=== PATIENT | male | born 1975 | race Caucasian/White ===

== ENCOUNTER 2017-02-17 12:17 | Outpatient (CLI) | payer OTHER | END 2017-02-17 19:56 | disposition home or self-care (01) | LOC: SUS 12:17 | PROVIDERS: ATTEND Family Medicine | DX: K52.9 Noninfective gastroenteritis and colitis, unspecified (principal) | CPT/HCPCS: 76700-TC ==

== ENCOUNTER 2017-02-19 12:41 | Inpatient (IN) | payer OTHER ==
[~2017-02-19] VITALS: Ht 175.3 cm; Wt 97.5 kg
[2017-02-19 12:49] VITALS: BP_SYST 159
--- NOTE | 2017-02-19 12:53 | NUR ---
Pt placed to ER waiting room in stable condition.
--- NOTE | 2017-02-19 15:00 | NUR ---
Patient to ER Bed H1 to gown for evaluation. Side rails up. Report given to Eugene NATHAN.
--- NOTE | 2017-02-19 15:30 | NUR ---
Pt ambulated into ED c/o N/V/D since 02/08/17. Pt reports having no appetite, feeling dehydrated, and being unable to keep any food down. Pt states his PMD has prescribed Zofran and other medications which did not relieve pt's symptoms. Afebrile, no cough present, pt speaking in full sentences, breathing even and unlabored. No other injuries/complaints per pt/noted.
--- NOTE | 2017-02-19 15:39 | NUR ---
ER Dr. Oliveira at bedside examining patient.
[2017-02-19] MEDS ORDERED: NACL 0.9% 1,000 ML IV ONE ×2 (15:49→17:30)
[2017-02-19] MEDS ORDERED: ONDANSETRON HCL 4 MG/2 ML VIAL IVP ONE ×2 (16:00→20:15)
--- NOTE | 2017-02-19 16:15 | NUR ---
# 20 gauge angiocath placed to L AC. Use of asceptic technique. Opsite placed over site. Blood return noted. Flushed with 10 cc of normal saline. No evidence of infiltration noted. Patient tolerated well.
[2017-02-19 16:18] LABS: BASOPHILS # (AUTO) 0.1 K/uL (0.0-0.2); BASOPHILS % (AUTO) 0.8 % (0.0-2.0); EOSINOPHILS # (AUTO) 0.1 K/uL (0.0-0.4); EOSINOPHILS % (AUTO) 0.8 % (0.0-4.0); HEMATOCRIT 45.8 % (36-54); HEMOGLOBIN 15.5 g/dL (14.0-18.0); LYMPHOCYTES # (AUTO) 1.6 K/uL (1.0-5.5); LYMPHOCYTES % (AUTO) 18.8 % (20.5-51.5); MEAN CORPUSCULAR HEMOGLOBIN 31 pg (27-31); MEAN CORPUSCULAR HGB CONC 34 % (32-36); MEAN CORPUSCULAR VOLUME 90 fL (79.0-98.0); MONOCYTES # (AUTO) 0.4 K/uL (0.0-1.0); MONOCYTES % (AUTO) 5.2 % (1.7-9.3); NEUTROPHILS # (AUTO) 6.2 K/uL (1.8-7.7); NEUTROPHILS % (AUTO) 74.4 % (40.0-70.0); PLATELET COUNT (AUTO) 237 K/uL (130-430); RED BLOOD CELL COUNT(AUTO) 5.07 MIL/uL (4.2-6.2); RED CELL DISTRIBUTION WIDTH 11.8 % (9.0-15.0); WHITE BLOOD COUNT (AUTO) 8.4 K/uL (4.8-10.8)
--- NOTE | 2017-02-19 16:31 | NUR ---
Medication administered. Pt tolerated well. No adverse reactions noted.
[2017-02-19 16:32] LABS: ANION GAP 12 (5-15); CALCIUM 9.5 mg/dL (8.4-11.0); CHLORIDE 103 mmol/L (98-107); CREATININE 0.97 mg/dL (0.55-1.30); GLUCOSE 98 mg/dL (70-99); POTASSIUM 3.5 mmol/L (3.5-5.1); SODIUM SERUM 142 mmol/L (136-145); UREA NITROGEN, BLOOD 10 mg/dL (8-21)
[2017-02-19 16:34] LABS: GFR AFRICAN AMERICAN 110 mL/min (>90)
[2017-02-19 16:40] LABS: BILIRUBIN,URINE 1+ (NEGATIVE); BLOOD, URINE NEGATIVE (NEGATIVE); CLARITY/URINE HAZY (CLEAR); COLOR,URINE AMBER (YELLOW); GLUCOSE,URINE NEGATIVE (NEGATIVE); KETONES,URINE 2+ (NEGATIVE); LEUKOCYTE ESTERASE ,URINE NEGATIVE (NEGATIVE); NITRITE, URINE NEGATIVE (NEGATIVE); PROTEIN URINE TRACE (NEGATIVE); UROBILINOGEN,URINE 0.2 (0.2-1.0)
[2017-02-19 16:41] LABS: ALANINE AMINOTRANSFERASE 116 U/L (12-78); ALBUMIN 4.3 g/dL (3.4-4.8); ASPARTATE AMINOTRANSFERASE 83 U/L (10-37); LIPASE 195 U/L (73-393); TOTAL BILIRUBIN 0.9 mg/dL (0.0-1.0)
[2017-02-19 16:47] LABS: INR 1.1 (0.80-1.20)
--- NOTE | 2017-02-19 16:54 | NUR ---
ER Dr. Maradiaga at bedside updating patient.
--- NOTE | 2017-02-19 17:10 | NUR ---
Pt ambulated to restroom with cane to provide stool sample.
[2017-02-19 17:35] LABS: BACTERIA,URINE FEW /HPF (None Seen); MUCUS,URINE 1+ /LPF (None Seen); RBC,URINE NONE SEEN /HPF (0-3); URINE AMORPHOUS URATE 4+ /HPF (None Seen); WBC,URINE 0-3 /HPF (0-3)
[2017-02-19] MEDS ORDERED: PANTOPRAZOLE SODIUM 40 MG/VIAL (PROTONIX) IVP ONE (18:15)
--- NOTE | 2017-02-19 18:28 | NUR ---
Pt taken to radiology via wheelchair in stable condition.
--- NOTE | 2017-02-19 18:38 | NUR ---
Pt returned from radiology via wheelchair in stable condition.
--- NOTE | 2017-02-19 18:52 | NUR ---
Pt reports feeling 8/10 aching dull non-radiating substernal pain. Dr. Maradiaga notified.
[2017-02-19] MEDS ORDERED: MORPHINE 4 MG/ML INJ. SYRINGE IVP ONE (19:15)
[2017-02-19] MEDS ORDERED: KETOROLAC TROMETHAMINE 30 MG VIAL IVP ONE (19:15)
[2017-02-19] MEDS ORDERED: PIPERACILLIN/TAZO 3.375 GM in NS 50 ML IV ONE (19:30)
[2017-02-19] MEDS ORDERED: MORPHINE SULFATE 10 MG/ML VIAL ONE (19:39)
--- NOTE | 2017-02-19 20:03 | NUR ---
Pt reports he is full code.
--- NOTE | 2017-02-19 20:40 | NUR ---
Zosyn administered. Pt tolerated well. No adverse reactions noted. at bedside.
[2017-02-19] MEDS ORDERED: DULO60CA41 PO (20:42)
[2017-02-19] MEDS ORDERED: SOM350 PO (20:42)
[2017-02-19] MEDS ORDERED: HYDR-4100 PO (20:42)
--- NOTE | 2017-02-19 20:49 | NUR ---
Medication reconciliation completed with information provided by Pt. Any prior medication reconciliation on file was reviewed and corrected.
--- NOTE | 2017-02-19 21:58 | NUR ---
Patient will be admitted to [facility]. Admitted to MEDSURG unit. Will go to room 123B. Belongings list completed. Summary report printed. Report will be given at bedside.
[2017-02-19] MEDS: NACL 0.9% 1,000 ML IV SCH (22:00)
--- NOTE | 2017-02-19 22:01 | NUR ---
ADMISSION NOTE Received patient from ER via erikarkristal, received report from MOBILE APPLICATION DEVELOPER. Patient admitted with diagnosis of ABDOMINAL PAIN RULE OUT ACTUE CHOLECYSTITIS. Patient oriented to hospital routine, call light, toileting and safety-patient verbalized understanding.
[2017-02-19 22:05] VITALS: BP_SYST 161
--- NOTE | 2017-02-19 22:30 | NUR ---
REPORT RECEIVED FROM ADMITTING NURSE Patient in bed resting. He says he is somewhat nauseous and he requested "nausea medication" and something for anxiety. The nurse will page Dr. Goodman. Patient is on IVF NS 0.9% at 75cc/hour right AC #20. He walks to the bathroom and he is instructed to call for assistance.
--- NOTE | 2017-02-19 23:00 | NUR ---
Dr. Goodman paged, waiting for response
--- NOTE | 2017-02-19 23:30 | NUR ---
DR. GOODMAN CALLED BACK Dr. Goodman called back and he ordered Zofran 4 mg q4h PRN and Ativan 0.5 mg q4h PRN. The nurse noticed that there are no Allergies noted in the system, but the patient is sleeping, so she will wait for him to wake up for the information.
[2017-02-20] VITALS: BP_SYST 146
--- NOTE | 2017-02-20 00:39 | NUR ---
CONSULT REASON CP FOR DOCTOR PIPPA, SULLY RODRIGEZ IS POWER PROJECT MANAGER SPOKE WITH EXCHANGE
[2017-02-20] MEDS ORDERED: LORazepam 2 MG/ML VIAL IVP PRN (01:00)
[2017-02-20] MEDS ORDERED: ONDANSETRON HCL 4 MG/2 ML VIAL IVP PRN (01:00)
--- NOTE | 2017-02-20 02:00 | NUR ---
ROUNDS Patient in bed sleeping. No pain or distress noted.
--- NOTE | 2017-02-20 04:30 | NUR ---
ROUNDS Patient in bed sleeping. No S/S of pain or distress noted. Fall precautions in place.
--- NOTE | 2017-02-20 05:30 | NUR ---
PATIENT REQUESTED ZOFRAN/ATIVAN Patient requested Zofran and Ativan. The nurse informed him that since he will have HIDA scan in the morning, he is not allowed to have pain or anxiety medications after 5 am. He was OK with the Zofran only. The nurse administered the medication.
--- NOTE | 2017-02-20 06:45 | NUR ---
CLOSING NOTE The nurse received a call from Radiology stating that they have 3 patients before Mr. Jaramillo to scan. The Radiology nurse recommended to ask the for order for breakfast for the patient. Dr. Goodman came to the unit at that time and the nurse spoke with him about that. Dr. Goodman put an order for Regular diet. The nurse called the kitchen and left a message with details about the patient needing breakfast brought to the room. Patient is in bed resting. No pain or distress noted. IVF are running smoothly. patient is on room air.
[2017-02-20 06:50] LABS: BASOPHILS % (AUTO) 0.3 % (0.0-2.0); EOSINOPHILS # (AUTO) 0.2 K/uL (0.0-0.4); EOSINOPHILS % (AUTO) 2.4 % (0.0-4.0); HEMATOCRIT 38.8 % (36-54); HEMOGLOBIN 13.6 g/dL (14.0-18.0); LYMPHOCYTES # (AUTO) 1.6 K/uL (1.0-5.5); LYMPHOCYTES % (AUTO) 17.9 % (20.5-51.5); MEAN CORPUSCULAR HEMOGLOBIN 32 pg (27-31); MEAN CORPUSCULAR HGB CONC 35 % (32-36); MEAN CORPUSCULAR VOLUME 91 fL (79.0-98.0); MONOCYTES # (AUTO) 0.8 K/uL (0.0-1.0); MONOCYTES % (AUTO) 8.5 % (1.7-9.3); NEUTROPHILS # (AUTO) 6.2 K/uL (1.8-7.7); NEUTROPHILS % (AUTO) 70.9 % (40.0-70.0); PLATELET COUNT (AUTO) 177 K/uL (130-430); RED BLOOD CELL COUNT(AUTO) 4.26 MIL/uL (4.2-6.2); RED CELL DISTRIBUTION WIDTH 12.1 % (9.0-15.0); WHITE BLOOD COUNT (AUTO) 8.8 K/uL (4.8-10.8)
[2017-02-20 07:07] LABS: CALCIUM 8.8 mg/dL (8.4-11.0); CREATININE 1.05 mg/dL (0.55-1.30); POTASSIUM 3.5 mmol/L (3.5-5.1)
[2017-02-20 08:00] VITALS: BP_SYST 125
--- NOTE | 2017-02-20 08:00 | NUR ---
OPENING NOTE PT A/O X 4, RESTING IN BED, BREATHING IS EVEN AND UNLABORED W/ NO SIGNS OF DISTRESS NOTED AT THIS TIME. IV SITE IS CLEAN, DRY AND INTACT W/ NO SIGNS OF REDNESS OR SWELLING, BUT IV PUMP IS BEEPING D/T HIGH PRESSURE. ADJUSTED IV AND RETAPED AND CONFIRMED IVF INFUSING WELL. PT STATES HIS ABDOMINAL PAIN IS AT 3/10, WHICH IS A COMFORTABLE LEVEL FOR HIM AND NO MEDICATIONS DESIRED. PAIN IS LOCATED IN UPPER MID ABDOMINAL AREA. NO SIGNS OF DISTRESS NOTED AT THIS TIME, NO C/O OF N/V. BED IS LOCKED IN LOWEST POSTION W/ 2 SIDE RAILS UP AND CALL LIGHT W/ PT. WILL CONTINUE TO MONITOR PT.
[2017-02-20] MEDS ORDERED: BISACODYL 10 MG/SUPPOSITORY RC PRN (09:30)
[2017-02-20] MEDS ORDERED: HYDROcodone/ACETAMIN 10-325 MG TAB PO PRN (09:30)
[2017-02-20] MEDS ORDERED: ZOLPIDEM TARTRATE 5 MG TABLET PO PRN (09:30)
[2017-02-20] MEDS ORDERED: POTASSIUM CHLORIDE 20 MEQ TAB.PRT.SR PO PRN (09:30)
[2017-02-20] MEDS ORDERED: SIMETHICONE 80 MG TAB.CHEW PO PRN (09:30)
--- NOTE | 2017-02-20 10:05 | NUR ---
ROUNDS PT RESTING IN BED W/ NO SIGNS OF DISTRESS NOTED AT THIS TIME. SAFETY MEASURES IN PLACE AND WILL CONTINUE TO MONITOR PT.
--- NOTE | 2017-02-20 10:22 | NUR ---
GI consult called: for Dr. Robertson (Dr. Vazquez is ribbon tier), regarding gastritis, ordered by Dr. Jimenez, spoke with An at [facility].
[2017-02-20] MEDS ORDERED: PANTOPRAZOLE GRANULES PACKET 40 MG GT ONE (10:30)
--- NOTE | 2017-02-20 10:45 | NUR ---
DR. FRANK DOING ROUNDS, AT PTS BEDSIDE.
[2017-02-20] MEDS: LORazepam 2 MG/ML VIAL IVP PRN (11:31)
[2017-02-20] MEDS: NACL 0.9% 1,000 ML IV SCH (11:40)
[2017-02-20] MEDS: ONDANSETRON HCL 4 MG/2 ML VIAL IM PRN ×3 (11:49→23:46)
[2017-02-20 12:00] VITALS: BP_SYST 140
--- NOTE | 2017-02-20 12:39 | NUR ---
pt off floor to radiology for HIDA Scan
--- NOTE | 2017-02-20 13:00 | NUR ---
PT RETURNED FROM RADIOLOGY. HIDA SCAN DELAYED UNTIL APPROXIMATELY 1530 D/T PT HAVING NORCO. PT RESTING IN BED W/ NO SIGNS OF DISTRESS NOTED AT THIS TIME. SAFETY MEASURES IN PLACE AND CALL LIGHT W/ PT.
--- NOTE | 2017-02-20 15:10 | NUR ---
ROUNDS PT RESTING IN BED W/ AT BEDSIDE. NO CONCERNS NOTED AT THIS TIME, SAFETY MEASURES IN PLACE AND CALL LIGHT W/ PT.
--- NOTE | 2017-02-20 15:35 | NUR ---
PT OFF FLOOR TO RADIOLOGY FOR HIDA SCAN
--- NOTE | 2017-02-20 18:05 | NUR ---
PT RETURNED TO FLOOR FROM RADIOLOGY
--- NOTE | 2017-02-20 19:30 | NUR ---
CLOSING NOTES PT RESTING IN BED W/ NO SIGNS OF DISTRESS NOTED AT THIS TIME, W/ AT BEDSIDE. PT C/O NAUSEA AND PRN ZOFRAN ADMINISTERED. PT ADVISED THAT TECH INFORMED HIM THAT GALLBLADDER NOT VISUALIZED AND THERE IS A POTENTIAL FOR SURGERY THIS EVENING. ADVISED PT THAT WE WILL FOLLOW UP ON NEXT STEPS AND WILL KEEP HIM UPDATED. SAFETY MEASURES IN PLACE, CALL LIGHT W/ PT AND WILL ENDORSE TO NOC SHIFT RN.
[2017-02-20 20:00] VITALS: BP_SYST 138
--- NOTE | 2017-02-20 20:00 | NUR ---
INITIAL NOTES PATIENT ON BED AWAKE AND ALERT BREATHING EVEN AND UNLABORED, MAINTAINED SAFETY PRECAUTIONS, MAINTAINED POSITION OF COMFORT. NO PAIN NOTED. EXPLAINED THE PLAN OF CARE AND VERBALIZED UNDERSTANDING, CALL LIGHT WITHIN REACH WILL CONTINUE TO MONITOR.
--- NOTE | 2017-02-20 20:30 | NUR ---
CALLED MD CALLED DR. MCKINNEY AND CLARIFIED THAT THE PATIENT IS PROBABLY NOT GOING TO HAVE A SURGERY TONIGHT AND WILL WAIT FOR THE HIDA SCAN RESULTS. PATIENT EAT ON A REGULAR DIET TONIGHT AND WILL BE ON NPO AFTER EATING AND MEDICINES TO PREPARE FOR THE POSSIBLE SURGERY TOMORROW.
[2017-02-20] MEDS: CARISOPRODOL 350 MG TABLET PO SCH (21:27)
[2017-02-20] MEDS: DULoxetine HCL 30 MG CAPSULE.DR (CYMBALTA) PO SCH (21:28)
--- NOTE | 2017-02-20 22:00 | NUR ---
RN ROUNDS PATIENT UP AND ABOUT WALKING ON THE HALLWAY AND TOLERATED WELL. MAINTAINED SAFETY PRECAUTIONS. BREATHING EVEN AND UNLABORED, ENCOURAGED TO DO RELAZATION AND DEEP BREATHING EXERCISES. CALL LIGHT WITHIN REACH WILL CONTINUE TO MONITOR.
--- NOTE | 2017-02-20 23:48 | NUR ---
RN ROUNDS PATIENT ON BED FEELING NAUSEOUS AND HAD SOME VOMITING THICK AMOUNT ABOUT 10CC, YELLOWISH AND HAVE SOME VEGETABLE IN IT. ZOFRAN GIVEN. NO PAIN NOTED. PATIENT ALSO HAS VERBALIZED SOME WATERY DIARRHEA THAT IS IRRITATING HIS BOTTOM AND ANUS. WILL GIVE REPORT TO NURSE TO TAKE OVER. CALL LIGHT WITHIN REACH WILL CONTINUE TO MONITOR.
--- NOTE | 2017-02-20 23:52 | NUR ---
ASSUMPTION OF CARE RECEIVED HANDOFF REPORT FROM HERBER-VENITA AT THE BEDSIDE. PATIENT IS AWAKE AND ALERT, SITTING UP AT THE EDGE OF THE BED WITH EPISODES OF VOMITING. ZOFRAN GIVEN BY HERBER CHAVEZ PER MD ORDER, SEE EMAR FOR DETAILS. NO SOB NOTED, BREATHING IS EVEN AND UNLABORED. BED IS LOCKED, IN THE LOWEST POSITION, WITH BILATERAL SIDE RAILS UP FOR SAFETY. PATIENT ALSO REPORTED THAT HE HAD AN EPISODE OF DIARRHEA. PATIENT IS ABLE TO AMBULATE SELF TO THE RESTROOM AND BACK, AND THEN HAD ANOTHER EPISODE OF DIARRHEA. WILL REPORT TO DOCTOR MCKINNEY. CALL LIGHT IS WITHIN REACH. WILL CONTINUE WITH PLAN OF CARE.
--- NOTE | 2017-02-20 23:57 | NUR ---
CALLED DR MCKINNEY AND INFORMED HIM THAT THE PATIENT ATE A SANDWICH FOR DINNER THAT WAS PROVIDED BY THE [employer] ATTENDANT PREVIOUSLY. ALSO INFORMED HIM THAT THE PATIENT IS NOW HAVING EPISODES OF DIARRHEA AND VOMITING. DR MCKINNEY STATED THAT THE PATIENT IS EXPERIENCING THESE SYMPTOMS DUE TO HIS DISEASE PROCESS. DR MCKINNEY ALSO STATED TO CONTINUE MONITORING THE EPISODES OF DIARRHEA AND VOMITING, TO KEEP THE PATIENT ON NPO, AND TO WAIT FOR THE RESULTS OF THE HIDA SCAN. DR MCKINNEY ALSO INFORMED THAT HE IS STILL PENDING A SURGEON FOR TOMORROW MORNING IF NEEDED. ORDERS NOTED AND CARRIED OUT, WILL CONTINUE TO MONITOR THE PATIENT CLOSELY.
--- NOTE | 2017-02-21 00:02 | NUR ---
CALLED [facility] [phone] PATIENT'S SPOUSE PER PATIENT REQUEST. INFORMED THE SPOUSE OF UPDATES ON THE PATIENT SINCE SHE LEFT AT 10AM. ALSO INFORMED HER THAT WE ARE STILL AWAITING FOR THE RESULTS OF THE HIDA SCAN, IS AWARE. SPOUSE HAS NO FURTHER QUESTIONS AT THIS TIME AND STATED THAT SHE WILL COME IN TOMORROW MORNING TO CHECK UP ON THE PATIENT.
[2017-02-21 00:28] VITALS: BP_SYST 149
--- NOTE | 2017-02-21 00:34 | NUR ---
PATIENT COMPLAINING THAT HE DID NOT LIKE HIS IV SITE DUE TO ITS LOCATION IN THE LEFT AC. STATED THAT IT ALWAYS CAUSES THE IV MACHINE TO BEEP. PATIENT REQUESTED FOR A NEW IV SITE TO BE DONE. ATTEMPTED TO START AN IV WITH NO SUCCESS. INFORMED THE PATIENT THAT HIS CURRENT IV SITE IS STILL A GOOD SITE. PATIENT STATED THAT HE WILL CONTINUE USING HIS CURRENT IV SITE.
--- NOTE | 2017-02-21 01:00 | NUR ---
PATIENT COMPLAINING ABOUT IV SITE AND WANTS A NEW IV SITE. IV STARTED IN THE LEFT HAND #18G, GOOD BLOOD RETURN, FLUSHES WELL. IV FLUIDS IS NOT INFUSING AT THE PRESCRIBED RATE THROUGH THE LEFT HAND IV. PATIENT TOLERATED PROCEDURE WELL.
--- NOTE | 2017-02-21 02:13 | NUR ---
PATIENT IS ASLEEP, RESTING COMFORTABLY IN BED. BREATHING IS EVEN AND UNLABORED WITH VISIBLE RISE AND FALL OF THE CHEST SEEN. NO SOB NOTED, NO S/S OF ACUTE DISTRESS, NO SIGNS OF PAIN OR FACIAL GRIMACING. CALL LIGHT WITHIN REACH.
[2017-02-21] MEDS: NACL 0.9% 1,000 ML IV SCH ×3 (05:35→21:42)
[2017-02-21] MEDS: ONDANSETRON HCL 4 MG/2 ML VIAL IM PRN ×3 (05:40→13:52)
--- NOTE | 2017-02-21 05:55 | NUR ---
ZOFRAN PATIENT IS COMPLAINING OF FEELING NAUSEOUS. PROVIDED ZOFRAN PRN PER MD ORDER, SEE EMAR FOR DETAILS.
--- NOTE | 2017-02-21 06:42 | NUR ---
CLOSING NOTES PATIENT IS ASLEEP, RESTING COMFORTABLY IN BED. NO SOB NOTED, NO S/S OF ACUTE DISTRESS, NO SIGNS OF PAIN OR FACIAL GRIMACING. BREATHING IS EVEN AND UNLABORED. IV SITE INTACT, DRESSING CLEAN AND DRY, CURRENTLY INFUSING FLUIDS AT THE PRESCRIBED RATE, SEE EMAR FOR DETAILS. BED IS LOCKED, IN THE LOWEST POSITION, WITH BILATERAL UPPER SIDE RAILS UP FOR SAFETY. FALL AND SAFETY PRECAUTIONS MAINTAINED. ALL NEEDS HAVE BEEN MET DURING THIS SHIFT. WILL ENDORSE CARE TO ONCOMING DAYSHIFT NURSE.
[2017-02-21 07:11] LABS: BASOPHILS % (AUTO) 0.2 % (0.0-2.0); EOSINOPHILS # (AUTO) 0.1 K/uL (0.0-0.4); EOSINOPHILS % (AUTO) 1.9 % (0.0-4.0); HEMATOCRIT 37.1 % (36-54); HEMOGLOBIN 13.1 g/dL (14.0-18.0); LYMPHOCYTES # (AUTO) 1.9 K/uL (1.0-5.5); LYMPHOCYTES % (AUTO) 25.2 % (20.5-51.5); MEAN CORPUSCULAR HEMOGLOBIN 32 pg (27-31); MEAN CORPUSCULAR HGB CONC 35 % (32-36); MEAN CORPUSCULAR VOLUME 91 fL (79.0-98.0); MONOCYTES # (AUTO) 0.6 K/uL (0.0-1.0); MONOCYTES % (AUTO) 8.1 % (1.7-9.3); NEUTROPHILS % (AUTO) 64.6 % (40.0-70.0); PLATELET COUNT (AUTO) 168 K/uL (130-430); RED BLOOD CELL COUNT(AUTO) 4.06 MIL/uL (4.2-6.2); RED CELL DISTRIBUTION WIDTH 12.1 % (9.0-15.0); WHITE BLOOD COUNT (AUTO) 7.6 K/uL (4.8-10.8)
[2017-02-21 07:30] LABS: ALBUMIN 3.8 g/dL (3.4-4.8); CREATININE 0.91 mg/dL (0.55-1.30); PHOSPHORUS 3.1 mg/dL (2.7-4.5); POTASSIUM 3.8 mmol/L (3.5-5.1); TOTAL BILIRUBIN 0.7 mg/dL (0.0-1.0)
[2017-02-21] MEDS: PANTOPRAZOLE SODIUM 40 MG TAB PO SCH (07:47)
[2017-02-21 08:00] VITALS: BP_SYST 133
--- NOTE | 2017-02-21 08:00 | NUR ---
OPENING NOTE PT A/OX4, RESTING IN BED, BREATHING IS EVEN AND UNLABORED ON ROOM AIR, W/ NO SIGNS OF DISTRESS NOTED AT THIS TIME. IV SITES ARE CLEAN, DRY AND INTACT W/ NO REDNESS OR SWELLING AND IVF INFUSING WELL TO L HAND IV SITE. PT IS NPO FOR POSSIBLE SURGERY TODAY AND PT IS ANXIOUS FOR UPDATE. ADVISED PT THAT WE WILL F/U W/ DOCTOR SOON HIDA SCAN RESULTS ARE AVAILABLE. BED IS LOCKED IN LOWEST POSITION, 2 SIDE RAILS UP, CALL LIGHT W/ PT AND PT INSTRUCTED TO CALL IF ASSISTANCE NEEDED. PT VERBALIZED UNDERSTANDING OF INSTRUCTIONS PROVIDED.
--- NOTE | 2017-02-21 09:11 | NUR ---
SURVEY ENGINEER DR MONTERO WAS CALLED , RE: PRECIOUS RESULTS. LEFT A VM ON HIS CELL
[2017-02-21] MEDS: LORazepam 2 MG/ML VIAL IVP PRN (09:40)
--- NOTE | 2017-02-21 09:40 | NUR ---
ROUNDS / ANXIETY MED PASS PT RESTING IN BED C/O ANXIETY. ADMINISTERED PRN ATIVAN, PROVIDED PT EDUCATION REGARDING MEDICATION USE AND POSSIBLE SIDE EFFECTS. NO OTHER CONCERNS NOTED AT THIS TIME, SAFETY MEASURES IN PLACE AND WILL CONTINUE TO MONITOR PT.
--- NOTE | 2017-02-21 10:53 | NUR ---
GI CONSULT CALLED TO DR CAVAZOS, RE: POSS CBD STONE NO BG IPTAKE ON HIDA. SPOKE TO OBED
--- NOTE | 2017-02-21 11:09 | NUR ---
GENERAL SURGERY CONSULT CALLED TO DR BOYLE, RE: POSS GALSTONE, NO GB UPTAK ON HIDA. SPOKE TO MAGGIE
--- NOTE | 2017-02-21 11:55 | NUR ---
ROUNDS PT RESTING IN BED W/ NO SIGNS OF DISTRESS NOTED. SAFETY MEASURES IN PLACE AND CALL LIGHT W/ PT.
[2017-02-21 12:00] VITALS: BP_SYST 140
--- NOTE | 2017-02-21 13:52 | NUR ---
ROUNDS / NAUSEA MED PASS PT RESTING IN BED C/O NAUSEA. ADMINISTERED PRN ZOFRAN AND PROVIDED PT EDUCATION REGARDING MEDICATION USE AND POSSIBLE SIDE EFFECTS. PT VERBALIZED UNDERSTANDING AND NO OTHER CONCERNS NOTED AT THIS TIME. SAFETY MEASURES IN PLACE, CALL LIGHT W/ PT AND WILL CONTINUE TO MONITOR PT.
--- NOTE | 2017-02-21 15:04 | NUR ---
Dietitian Recommendations *Continue NPO status per MD. *Recommend advance diet when medically appropriate (soft diet).
[2017-02-21 16:00] VITALS: BP_SYST 142
--- NOTE | 2017-02-21 16:10 | NUR ---
ROUNDS PT RESTING IN BED W/ EYES CLOSED, APPEARS TO BE SLEEPING. NO SIGNS OF DISTRESS NOTED, SAFETY MEASURES IN PLACE, WILL CONTINUE TO MONITOR PT.
--- NOTE | 2017-02-21 17:00 | NUR ---
ROUNDS / CHG BATH ASSISTED PT W/ CHG BATH IN PREPARATION FOR SURGERY AND CHANGED BED LINENS. PT'S AT BEDSIDE, SAFETY MEASURES IN PLACE AND CALL LIGHT W/ PT. WILL CONTINUE TO MONITOR PT.
--- NOTE | 2017-02-21 17:58 | NUR ---
Pt off floor to OR for surgery
--- NOTE | 2017-02-21 19:00 | NUR ---
CLOSING NOTE PT STILL IN OR FOR SURGERY. WILL ENDORSE TO NOC SHIFT RN.
[2017-02-21] MEDS ORDERED: HYDROmorphone 1 MG INJ. 1 MG/ML AMPUL IVP PRN (19:15)
[2017-02-21] MEDS ORDERED: MEPERIDINE HCL/PF 25 MG/ML DISP.SYRIN IVP PRN (19:15)
[2017-02-21] MEDS ORDERED: ONDANSETRON HCL 4 MG/2 ML VIAL IVP ONE (19:15)
[2017-02-21] MEDS ORDERED: NALOXONE HCL 0.4 MG/ML AMP (NARCAN) IVP ONE (19:15)
[2017-02-21] MEDS ORDERED: MIDAZOLAM HCL 5 MG/5 ML VIAL IVP PRN (19:15)
[2017-02-21] MEDS ORDERED: KETOROLAC TROMETHAMINE 30 MG VIAL IM ONE (19:15)
[2017-02-21] MEDS ORDERED: fentaNYL CITRATE/PF 100 MCG/2 ML AMP IVP PRN (19:15)
[2017-02-21] MEDS ORDERED: HYDROmorphone 1 MG INJ. 1 MG/ML AMPUL ONE (19:50)
[2017-02-21] MEDS: CARISOPRODOL 350 MG TABLET PO SCH (21:41)
[2017-02-21] MEDS: DULoxetine HCL 30 MG CAPSULE.DR (CYMBALTA) PO SCH (21:41)
[2017-02-21] MEDS ORDERED: cefTRIAXone 1 GM IVPB PREMIX 0 ML IV ONE (22:09)
[2017-02-21] MEDS ORDERED: CEFAZOLIN 2 GM IVPB PREMIX 100 ML IV ONE (22:13)
[2017-02-21 22:20] VITALS: BP_SYST 142
--- NOTE | 2017-02-21 22:30 | NUR ---
RECEIVED PATIENT FROM OR NURSE AT THE BEDSIDE. PATIENT IS AWAKE AND ALERT, RESTING COMFORTABLY IN BED. SPOUSE IS AT THE BEDSIDE. NO SOB NOTED, NO S/S OF ACUTE DISTRESS. PATIENT HAS MINIMAL DISCOMFORT WITH INCISION SITE. BED IS LOCKED, IN THE LOWEST POSITION, WITH BILATERAL UPPER SIDE RAILS UP. BEDSIDE COMMODE PROVIDED WELL A URINAL. IV SITE IS INTACT, CURRENTLY INFUSING FLUIDS FROM THE OR. INFORMED PATIENT THAT STAFF WILL BE MONITOR VITAL SIGNS CLOSELY DURING THE POST-OPERATIVE PERIOD, PATIENT VERBALIZES UNDERSTANDING. SPOUSE INFORMED ME THAT SHE WILL BE LEAVING, AND WILL RETURN IN THE MORNING. ENCOURAGED PATIENT TO CALL FOR ASSISTANCE WHEN NEEDED. CALL LIGHT PLACED WITHIN REACH.
[2017-02-21] MEDS: MORPHINE 2 MG/ML INJ. SYRINGE IVP PRN (23:13)
[2017-02-21] MEDS: ceFAZolin SODIUM 2 GM in D5W 100 ML IV SCH (23:14)
[2017-02-21] MEDS: METOCLOPRAMIDE HCL 10 MG/2 ML VIAL IVP SCH (23:17)
--- NOTE | 2017-02-21 23:30 | NUR ---
PATIENT COMPLAINING OF PAIN IN THE LOWER ABDOMINAL WHERE THE INCISION SITE IS AT 8/10. MORPHINE PROVIDED PRN PER MD ORDER, SEE EMAR FOR DETAILS.
[2017-02-22 00:54] VITALS: BP_SYST 112
--- NOTE | 2017-02-22 02:29 | NUR ---
PATIENT IS ASLEEP, RESTING COMFORTABLY IN BED. BREATHING IS EVEN AND UNLABORED WITH VISIBLE RISE AND FALL OF THE CHEST SEEN. NO SOB NOTED, NO S/S OF ACUTE DISTRESS, NO COMPLAINTS OF PAIN. IV SITE INTACT, CURRENTLY INFUSING FLUIDS AT THE PRESCRIBED RATE, SEE EMAR. BED IS LOCKED, IN THE LOWEST POSITION, WITH BILATERAL UPPER SIDE RAILS UP. BED ALARM IS ON. CALL LIGHT WITHIN REACH.
--- NOTE | 2017-02-22 04:08 | NUR ---
PATIENT IS ASLEEP, RESTING COMFORTABLY IN BED. NO SOB NOTED, NO S/S OF ACUTE DISTRESS, NO SIGNS OF PAIN OR FACIAL GRIMACING. BREATHING IS EVEN AND UNLABORED WITH VISIBLE RISE AND FALL OF THE CHEST SEEN. BED IS LOCKED, IN THE LOWEST POSITION, WITH BILATERAL UPPER SIDE RAILS UP. BED ALARM IS ON. CALL LIGHT WITHIN REACH.
[2017-02-22] MEDS: NACL 0.9% 1,000 ML IV SCH ×2 (05:10→11:06)
[2017-02-22] MEDS: MORPHINE 2 MG/ML INJ. SYRINGE IVP PRN ×2 (05:10→09:38)
[2017-02-22] MEDS: ceFAZolin SODIUM 2 GM in D5W 100 ML IV SCH ×2 (05:11→14:53)
[2017-02-22] MEDS: METOCLOPRAMIDE HCL 10 MG/2 ML VIAL IVP SCH ×2 (05:11→11:38)
--- NOTE | 2017-02-22 05:20 | NUR ---
PATIENT COMPLAINING OF PAIN IN THE LOWER ABDOMINAL WHERE THE INCISION SITE IS AT 8/10. MORPHINE PROVIDED PRN PER MD ORDER, SEE EMAR FOR DETAILS.
--- NOTE | 2017-02-22 06:28 | NUR ---
CLOSING NOTES PATIENT IS AWAKE AND ALERT, RESTING COMFORTABLY IN BED. NO SOB NOTED, NO S/S OF ACUTE DISTRESS, NO COMPLAINTS OF PAIN AT THIS TIME. IV SITE INTACT, DRESSING CLEAN AND DRY, CURRENTLY INFUSING FLUIDS AT THE PRESCRIBED RATE, SEE EMAR. BED IS LOCKED, IN THE LOWEST POSITION, WITH BILATERAL UPPER SIDE RAILS UP FOR SAFETY. PATIENT REFUSED BED ALARM THROUGHOUT THE SHIFT. PATIENT ALSO REPORTED TO ME THAT HE WENT TO THE BEDSIDE COMMODE BY HIMSELF A COUPLE OF TIMES THROUGHOUT THE NIGHT TO PEE. CALL LIGHT WITHIN REACH. FALL AND SAFETY PRECAUTIONS MAINTAINED, ALL NEEDS HAVE BEEN MET DURING THIS SHIFT. WILL ENDORSE CARE TO ONCOMING DAYSHIFT NURSE.
[2017-02-22 07:15] LABS: HEMATOCRIT 37.1 % (36-54); HEMOGLOBIN 13.1 g/dL (14.0-18.0); LYMPHOCYTES # (AUTO) 1.7 K/uL (1.0-5.5); LYMPHOCYTES % (AUTO) 13.5 % (20.5-51.5); MEAN CORPUSCULAR HEMOGLOBIN 32 pg (27-31); MEAN CORPUSCULAR HGB CONC 35 % (32-36); MEAN CORPUSCULAR VOLUME 91 fL (79.0-98.0); MONOCYTES # (AUTO) 0.7 K/uL (0.0-1.0); MONOCYTES % (AUTO) 5.3 % (1.7-9.3); NEUTROPHILS # (AUTO) 10.4 K/uL (1.8-7.7); PLATELET COUNT (AUTO) 194 K/uL (130-430); RED BLOOD CELL COUNT(AUTO) 4.09 MIL/uL (4.2-6.2); RED CELL DISTRIBUTION WIDTH 11.9 % (9.0-15.0); WHITE BLOOD COUNT (AUTO) 12.8 K/uL (4.8-10.8)
[2017-02-22 07:29] LABS: ALBUMIN 3.8 g/dL (3.4-4.8); CALCIUM 8.8 mg/dL (8.4-11.0); CREATININE 0.83 mg/dL (0.55-1.30); POTASSIUM 3.3 mmol/L (3.5-5.1); TOTAL BILIRUBIN 0.8 mg/dL (0.0-1.0)
--- NOTE | 2017-02-22 08:00 | NUR ---
Opening Note Pt a/o x 4, resting in bed w/ eyes closed appears to be sleeping, breathing is even and unlabored on room air, no signs of distress noted at this time. Pt's at bedside. IV site is clean, dry intact w/ no signs of redness or swelling, ivf infusing well. Pt states pain is 4/10, which is a comfortable level for him as he typically has a constant back pain at level of 5/10 after home medications. Bed is locked in lowest postion, 2 side rails up, call light w/ pt and pt instructed to call if assistance needed. pt verbalized understanding of instructions.
[2017-02-22 08:21] VITALS: BP_SYST 135
[2017-02-22] MEDS: PANTOPRAZOLE SODIUM 40 MG TAB PO SCH (09:33)
--- NOTE | 2017-02-22 09:38 | NUR ---
Rounds / Pain Pt c/o pain 7/10 at sx incisions and small amount of nausea. administered prn zofran and pain medication. safety measures in place, will reassess and continue to monitor pt.
[2017-02-22] MEDS: ONDANSETRON HCL 4 MG/2 ML VIAL IM PRN (09:39)
[2017-02-22] MEDS ORDERED: HYDR-4100 PO (10:33)
[2017-02-22] MEDS ORDERED: DOCU-144 PO (10:33)
[2017-02-22] MEDS ORDERED: ONDA4TAB5 PO (10:33)
--- NOTE | 2017-02-22 10:45 | NUR ---
Dr. Jimenez Rounds At pts bedside, states pt may be discharged after next dose of antibiotics if cleared by surgeon Dr. Mccormick.
[2017-02-22 12:15] VITALS: BP_SYST 144
[2017-02-22] MEDS ORDERED: POTASSIUM CHLORIDE 20 MEQ TAB.PRT.SR PO ONE (12:15)
--- NOTE | 2017-02-22 12:15 | NUR ---
Rounds Pt sitting in chair w/ no signs of distress noted at this time. Administered due medication, provided pt w/ education regarding medication use and possible side effects. Safety measures in place, call light w/ pt, will continue to monitor pt.
[2017-02-22 12:49] LABS: NEUTROPHILS % (AUTO) 81.2 % (40.0-70.0)
--- NOTE | 2017-02-22 13:17 | NUR ---
Dr. Mccormick Rounds At pt's bedside and confirmed approval for pt to be discharged home after admin of next dose of Ancef and f/u w/ him in 1 week. Ancef not delivered from Pharmacy yet, but will administer upon receipt.
--- NOTE | 2017-02-22 14:53 | NUR ---
Rounds Pt's IV antibiotics delivered by pharmacy and infusion started. Provided pt education regarding use and possible side effects of medication. Pt verbalized understanding and no concerns noted. Safety measures in place, will continue to monitor and prepare for discharge after antibiotic administration complete.
[2017-02-22 15:02] VITALS: BP_SYST 144
--- NOTE | 2017-02-22 16:50 | NUR ---
D/C Patient Patient given medication reconciliation form and D/C instructions. Exit Care provided. Patient verbalized understanding. MD discussed with patient the results and treatment provided. Ambulatory with steady gait for discharge to home. Patient in stable condition, ID band removed. IV catheter removed, intact and dressing applied, no active bleeding. Rx of [place] given. Patient educated on pain management. All belongings sent with patient.
== END 2017-02-22 16:40 | disposition home or self-care (01) | DRG 419 ==
LOC: SED 12:41 → SMU 19:27
PROVIDERS: ADMIT Internal Medicine Hospice and Palliative Medicine; ATTEND Internal Medicine Hospice and Palliative Medicine
PROC: 0FT44ZZ Resection of Gallbladder, Percutaneous Endoscopic Approach (ICD-10-PCS; principal; 2017-02-21 18:00)
DX: K80.00 Calculus of gallbladder with acute cholecystitis without obstruction (principal); D63.8 Anemia in other chronic diseases classified elsewhere; F41.9 Anxiety disorder, unspecified; E86.0 Dehydration; M48.00 Spinal stenosis, site unspecified; M54.5 Low back pain; G89.4 Chronic pain syndrome; E66.9 Obesity, unspecified; Z68.31 Body mass index [BMI] 31.0-31.9, adult; Z86.14 Personal history of Methicillin resistant Staphylococcus aureus infection
CPT/HCPCS: 36415; 71045; 78226; 80048; 80053; 81000-TC; 83605; 83690-TC; 83735-TC; 84100-TC; 84484; 85025; 85610-TC; 85730-TC; 86710; 87040-TC; 87045-TC; 87046; 87081; 87177; 87230-TC; 88304; 93005; 94010; 96365; 96375; 96376; 99285; A9537; C1727; C9113; J0690; J0696; J1170; J1885; J2060; J2270; J2405; J2543; J2765; J7030; J7060

== ENCOUNTER 2017-05-05 11:55 | Outpatient (CLI) | payer OTHER ==
[~2017-05-05 11:55] MED LIST: DOCU-144 PO; DULO60CA41 PO; HYDR-4100 PO; ONDA4TAB5 PO; SOM350 PO
== END 2017-05-05 22:12 | disposition home or self-care (01) ==
LOC: SRD 11:55
PROVIDERS: ATTEND Family Medicine
DX: R05 Cough (principal)
CPT/HCPCS: 71046-TC

== ENCOUNTER 2017-05-20 08:36 | Outpatient (CLI) | payer OTHER | END 2017-05-20 18:54 | disposition home or self-care (01) | LOC: SRD 08:36 | PROVIDERS: ATTEND Specialist | DX: R06.02 Shortness of breath (principal) | CPT/HCPCS: 71046-TC ==

== ENCOUNTER 2017-07-10 11:54 | Outpatient (CLI) | payer OTHER | END 2017-07-10 20:56 | disposition home or self-care (01) | LOC: SRD 11:54 | PROVIDERS: ATTEND Specialist | DX: J30.9 Allergic rhinitis, unspecified (principal); J32.9 Chronic sinusitis, unspecified | CPT/HCPCS: 70220-TC ==